=== PATIENT | male | born 2000 | race Caucasian/White ===

== ENCOUNTER 2019-05-22 12:47 | Emergency (ER) | payer OTHER, SELFPAY ==
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
== END 2019-05-22 14:55 | disposition home or self-care (01) ==
LOC: ERS 12:47
DX: S62.015A Nondisplaced fracture of distal pole of navicular [scaphoid] bone of left wrist, initial encounter for closed fracture (principal); J45.909 Unspecified asthma, uncomplicated; F17.220 Nicotine dependence, chewing tobacco, uncomplicated; W19.XXXA Unspecified fall, initial encounter